=== PATIENT | male | born 1995 | race Hispanic/Latino ===

== ENCOUNTER 2023-03-30 09:43 | Emergency (ER) | payer SELFPAY ==
[2023-03-30] MEDS ORDERED: Ketorolac 30 MG/ML SDV IVPUSH ONE (09:59)
[2023-03-30] MEDS ORDERED: diphenhydrAMINE 50 MG/ML SDV IVPUSH ONE (09:59)
[2023-03-30] MEDS ORDERED: Ondansetron 4 MG/2 ML SDV IVPUSH ONE (09:59)
[2023-03-30] MEDS ORDERED: Sodium Chloride 0.9% 1,000 ML IV ONE (09:59)
[2023-03-30] MEDS ORDERED: Metoclopramide 10 MG/2 ML SDV IVPUSH ONE (09:59)
[2023-03-30 10:10] LABS: BASOPHILS ABSOLUTE AUTO 0.04 K/uL (0.00-0.20); BASOPHILS PERCENT AUTO 0.4 % (0.0-1.0); EOSINOPHILS ABSOLUTE AUTO 0.11 K/uL (0.00-0.45); EOSINOPHILS PERCENT AUTO 1.1 % (0.0-6.0); HEMATOCRIT 44.8 % (42.0-52.0); HEMOGLOBIN 15.5 g/dL (14.0-18.0); IMMATURE GRAN ABSOLUTE AUTO 0.03 K/uL (0.00-0.05); IMMATURE GRAN PERCENT AUTO 0.3 % (0.0-0.4); LYMPHOCYTES ABSOLUTE AUTO 4.35 K/uL (1.00-4.80); LYMPHOCYTES PERCENT AUTO 44.5 % (24.0-44.0); MEAN CORPUSCULAR HEMOGLOBIN 27.5 pg (28.0-32.0); MEAN CORPUSCULAR HGB CONC 34.6 g/dL (32.0-36.0); MEAN CORPUSCULAR VOLUME 79.6 fL (83.0-99.0); MEAN PLATELET VOLUME 8.8 fL (9.4-12.4); MONOCYTES ABSOLUTE AUTO 0.64 K/uL (0.00-0.80); MONOCYTES PERCENT AUTO 6.5 % (0.0-8.0); NEUTROPHILS ABSOLUTE AUTO 4.61 K/uL (1.80-7.70); NEUTROPHILS PERCENT AUTO 47.2 % (41.0-71.0); PLATELET COUNT,PLT 278 K/uL (150-400); RED BLOOD CELL COUNT 5.63 M/uL (4.52-5.90); WHITE BLOOD CELL COUNT,WBC 9.78 K/uL (3.9-11.3)
[2023-03-30 10:30] LABS: A/G RATIO 1.1 (0.9-1.6); ALBUMIN 3.9 g/dL (3.4-5.0); BILIRUBIN TOTAL 0.8 mg/dL (0.2-1.0); CALCIUM 9.1 mg/dL (8.5-10.1); CARBON DIOXIDE,CO2 28.3 mmol/L (21.0-32.0); EST CRCL DRUG DOSING (CG) 123.18 mL/min; POTASSIUM,K 3.9 mmol/L (3.5-5.1); PROTEIN TOTAL,TP 7.3 g/dL (6.4-8.2)
== END 2023-03-30 11:22 | disposition home or self-care (01) ==
LOC: MW.ED 09:43
DX: G43.909 Migraine, unspecified, not intractable, without status migrainosus (principal); Z88.0 Allergy status to penicillin
CPT/HCPCS: 36415; 70450; 80053; 85025; 96361; 96374; 96375; 99284; J1200; J1885; J2405; J2765; J7030

== ENCOUNTER 2023-06-22 16:42 | Emergency (ER) | payer SELFPAY ==
[2023-06-22] MEDS ORDERED: Ibuprofen 600 MG Tab PO ONE (17:05)
[2023-06-22] MEDS ORDERED: Acetaminophen 500 MG Tab PO ONE (17:16)
[2023-06-22 17:53] LABS: CORONAVIRUS COVID-19 NAA NEGATIVE (NEGATIVE); INFLUENZA A NAA NEGATIVE (NEGATIVE); INFLUENZA B NAA POSITIVE (NEGATIVE); RESPIRATORY SYNCYTIAL VIR NAA NEGATIVE (NEGATIVE)
== END 2023-06-22 18:23 | disposition home or self-care (01) ==
LOC: MW.ED 16:42
DX: J10.1 Influenza due to other identified influenza virus with other respiratory manifestations (principal); Z20.822 Contact with and (suspected) exposure to COVID-19; Z88.0 Allergy status to penicillin
CPT/HCPCS: 0241U; 87651; 99283; A9270

== ENCOUNTER 2023-07-01 23:27 | Emergency (ER) | payer SELFPAY | END 2023-07-01 23:56 | LOC: MERGE 23:27 → MW.ED 23:27 | DX: R04.0 Epistaxis (principal) | CPT/HCPCS: 99281; 99283 ==